=== PATIENT | male | born 1955 | race Two or more races ===

== ENCOUNTER 2022-01-08 10:32 | Emergency (ER) | payer OTHER ==
--- OUTSIDE RECORDS SUMMARY | 2022-01-08 10:34 | XMS REPORT | Continuity of Care Document ---
:1955 Author Organization [facility] t Address [address] [place] [address] [address]. [address] [place] [address] Care Team Providers Name Role Phone Bhavani Bernardo MD Attending Clinician Monty SANDOVAL Attending Clinician Unavailable Monty BERNARDO Attending Clinician Unavailable RADIOLOGY Attending Clinician Unavailable Radiology Attending Clinician Unavailable Payers Payer Name Policy Type Policy Number Effective Date Expiration Date S ource Problems This patient has no known problems. Allergies, Adverse Reactions, Alerts Allergy Allergy Status Severity Reaction(s) Onset Inactive Treating Comm ents Source Name Type Date Date Clinician NO KNOWN Drug Active Univers ALLERGIE Class ity of [facility] Social History Social Habit Start Date Stop Date Quantity Comments Source Exposure to Not sure [facility] SARS-CoV-2 (event) Medica l [place] Sex Assigned At [birth year] [facility] 00:00:00 00:00:00 [facility] Smoking Status Start Date Stop Date Source Unknown if ever smoked [facility] Medications Ordered Filled Start Stop Current Ordering Indication Dosage Frequency Signature Comments Components Source Medication Medication Date Date Medication? Clinician (SIG) Name Name iohexol 2020- No [id number] 100mL 100 mL, Univers (OMNIPAQUE 01-08 Intravenou it y of 350 13:10: 13:23 s, ONCE, 1 [place] BULK-100 00 :00 dose, Mon Medica l mL) 01/08/21 at Branch injection 0830, 100 mL Routine No known No Univers medications [facility] No known No Univers medications [facility] Immunizations Ordered Filled Immunization Date Status Comments Sourc e Immunization Name Name SARS-COV-2 COVID-19 2021-01-08 Completed Unive rsity of [facility]ER[place] VACCINE 00:00:[address] [facility] SARS-COV-2 COVID-19 2020-12-11 Completed Unive rsity [facility] VACCINE [facility] SARS-COV-2 COVID-19 2020-12-11 Completed Unive rsity of MODERNA VACCINE 00:00:[address] [facility] SARS-COV-2 COVID-19 2020-12-11 Completed Unive rsity of MODERNA VACCINE 00:00:[address] [facility] Procedures Procedure Date / Time Performed Performing Clinician Sourc e CT THORAX W WO 2021-01-08 13:17:00 Bhavani Bernardo [facility] [place] CONTRAST [facility] HB CREATININE BLOOD 2021-01-08 12:06:00 Bhavani Bernardo [facility] XR CHEST 2 VW 2020-12-27 16:24:45 Requisition, Paper [facility] NOTICE OF PRIVACY 2020-12-27 16:02:49 Doctor Unassigned, No [facility] CONSENT/REFUSAL FOR 2020-12-27 16:02:26 Doctor Unassigned, No Un [facility] DIAGNOSIS AND [facility] TREATMENT ASSIGNMENT OF BENEFITS 2020-12-27 16:02:01 Doctor Unassigned, No [facility] Encounters Start End Encounter Admission Attending Care Care Encounter Source Date/Time Date/Time Type Type Clinicians Facility Department ID 2021-01-08 2021-01-08 [facility] [id number] Univers 07:48:10 23:59:00 Encounter Bhavani Benitez [id number] [facility] [id number] [facility] [id number] [place] [address] Branch 2021-01-08 2021-01-08 Outpatient Aleks SANDOVAL [facility] [id number] Univers 14:20:00 14:20:00 RENETTA milo [facility] 2021-01-08 2021-01-08 Outpatient Aleks BERNARDO [facility] [id number] Univers 08:00:00 08:00:00 BHAVANI [id number] [facility] 2021-01-02 2021-01-02 KVNG [facility] [id number] Univers 00:00:00 00:00:00 Management Bhavani TRIVEDI [id number] ity of [facility] [id number] [facility] [id number] [facility] 803 [place] 2020-12-30 2020-12-30 Outpatient R RADIOLOGY [facility] [id number] Univers 00:00:00 00:00:00 [id number] [facility] 2020-12-27 2020-12-[address] [facility] [id number] Univers 11:00:00 23:59:00 Encounter Eli [id number] ity of [place] [id number] [place] [facility] [id number] [place] [id number] [place] 2020-12-27 2020-12-27 Outpatient R RADIOLOGY [facility] [id number] Univers 00:00:00 00:00:00 [facility] 2020-12-27 2020-12-27 Outpatient R RADIOLOGY [facility] [id number] Univers 00:00:00 00:00:00 [facility] Results Test Description Test Time Test Comments Results Result Comments Source POCT CREATININE 2021-01-08 19:10:00 Test Item Value Reference Range Interpretation Comme nts POCT Creatinine (test code = 6612204290) 0.9 mg/dL 0.6-1.3 Lab Interpretation (test code = 72397-9) [facility] [id number] 14:09:49 No chest wall mass identified. CT SCAN OF THE CHEST WITH AND WITHOUT CONTRAST TECHNIQUE: Multidetector helical CT scan of the chest was performed withand without intravenous iodinated contrast. Coronal sagittal reformats werealso generated and submitted for review. CLINICAL INFORMATION: Left chest wall mass. DOSE INFORMATION: 369 COMPARISON: 84 FINDINGS:Lungs: ?Clear lungs except for subsegmental millimeter calcified granulomain the anterior right upper lobe (19:73). Airways: Patent central airways. Pleura: ?No pleural effusion or pneumothorax. Mediastinum: No mediastinal or hilar lymphadenopathy. Cardiovascular: ?Normal caliber of thoracic aorta and proximal greatvessels. No pericardial effusion. No discernible coronary arterycalcifications. Lower neck and chest wall: No chest wall mass. Mild cutaneouscalcifications are seen within the bilateral upper chest (particularly atthe midline and on the left). Upper abdomen: Cholelithiasis. No pericholecystic free fluid orinflammatory change. Bones: No acute or suspicious osseous abnormality. Mild multileveldegenerative changes of thoracic spine. [facility], Radiant Results Inft User - 01/08/2021 9:10 AM CDTCT SCAN OF THE CHEST WITH AND WITHOUT CONTRASTTECHNIQUE: Multidetector helical CT scan of the chest was performed withand without intravenous iodinated contrast. Coronal sagittal reformats werealso generated and submitted for review.CLINICAL INFORMATION: Left chest wall mass.DOSE INFORMATION: 369COMPARISON: 84FINDINGS:Lungs: Clear lungs except for subsegmental millimeter calcified granulomain the anterior right upper lobe (19:73).Airways: Patent central airways.Pleura: No pleural effusion or pneumothorax.Mediastinum: No mediastinal or hilar lymphadenopathy.Cardiovascular: Normal caliber of thoracic aorta and proximal greatvessels. No pericardial effusion. No discernible coronary arterycalcifications.Lower neck and chest wall: No chest wall mass. Mild cutaneouscalcifications are seen within the bilateral upper chest (particularly atthe midline and on the left).Upper abdomen: Cholelithiasis. No pericholecystic free fluid orinflammatory change. Bones: No acute or suspicious osseous abnormality. Mild multileveldegenerative changes of thoracic spine.IMPRESSIONNo chest wall mass identified.[facility] XR CHEST 2 [id number] 16:29:14HISTORY: ?Chest wall mass. TECHNIQUE: PA and lateral views of the chest are obtained. FINDINGS: No acute pneumonia detected. No pneumothorax or pleural effusionor pulmonary congestion. Cardiothoracic ratio of approximately 13.6/33.6 cmis consistent with normal cardiac size. Mild pectus excavatum deformity ofthe lower sternum noted. Mild mid thoracic degenerative spondylosis isnoted without any compression fracture deformity in the thoracic vertebralbodies. Prominent Schmorl's node noted in the lowerplate of T10 and T11,likely secondary to remote axial loading trauma. CONCLUSIONS: No signs of acutecardiopulmonary disease. Chest wall mass isnot appreciated in the chest radiographs. If furtherevaluation/clarification is desired, CT scan of the chest may be obtained.[facility], Radiant Results Inft User - 12/27/2020 11:30 AM CDTHISTORY: Chest wall mass.TECHNIQUE: PA and lateral views of the chest are ob tained.FINDINGS: No acute pneumonia detected. No pneumothorax or pleural effusionor pulmonary congestion. Cardiothoracic ratio of approximately 13.6/33.6 cmis consistent with normal cardiac size. Mild pectus excavatum deformity ofthe lower sternum noted. Mild mid thoracic degenerative spondylosis isnoted without any compression fracture deformity in the thoracic vertebralbodies. Prominent Schmorl's node noted in the lower plate of T10 and T11,likely secondary to remote axial loading trauma.CONCLUSIONS: No signs of acute cardiopulmonary disease. Chest wall mass isnot appreciated in the chest radiographs. If furtherevaluation/clarification is desired, CT scan of the chest may be obtained.[facility]
[2022-01-08 11:00] LABS: Absolute Lymphocytes (CBC) 0.7 K/uL (0.7-4.9); Hematocrit 38.5 % (39.6-49.0); Lymphocytes % 10.7 % (15.3-44.8); MPV 8.6 fL (7.6-11.3); RBC Red Blood Cell Count 4.31 M/uL (4.33-5.43)
--- NOTE | 2022-01-08 11:05 | RAD REPORT ---
EXAM DESCRIPTION: RAD - Chest Single View - 01/08/2022 10:59 am CLINICAL HISTORY: syncope COMPARISON: CHEST PA AND LAT 2 VIEW dated 12/14/2012; CHEST PA AND LAT 2 VIEW dated 08/26/2000 FINDINGS: Lines: None. Lungs: No evidence of edema or pneumonia. Pleural: No significant pleural effusions or pneumothorax. Cardiac: The heart size is within normal limits. Bones: No acute fractures. Other: IMPRESSION: No acute cardiopulmonary disease.
--- NOTE | 2022-01-08 11:08 | RAD REPORT ---
EXAM DESCRIPTION: CT - Head Brain Wo Cont - 01/08/2022 10:57 am CLINICAL HISTORY: SYNCOPE COMPARISON: SINUS W O CONTRAST dated 06/12/2015; CT HEAD BRAIN WWO CONTRAST dated 12/28/2008 TECHNIQUE: All CT scans are performed using dose optimization technique as appropriate and may inclu de automated exposure control or mA/KV adjustment according to patient size. FINDINGS: No intracranial hemorrhage, hydrocephalus or extra-axial fluid collection.No areas of brai n edema or evidence of midline shift. Left maxillary sinus mucous retention cyst. The calvarium is intact. IMPRESSION: No acute intracranial abnormality.
[2022-01-08 11:20] LABS: Potassium 3.9 mmol/L (3.5-5.1)
[2022-01-08 11:52] LABS: SARS-COV-2 RT PCR NEGATIVE (NEGATIVE)
[2022-01-08] MEDS ORDERED: NA CHLORIDE 0.9% 1,000 ML ONE (12:32)
--- NOTE | 2022-01-08 14:20 | ER ---
Nurse's Notes [facility] Name: Buddy Mccarthy Age: 66 yrs Sex: Male : 1955 Arrival Date: 01/08/2022 Time: 10:34 Bed 15 Private MD: Diagnosis: syncope;Orthostatic hypotension;Influenza a Presentation: 01/08 10:27 Chief complaint: EMS states: called after patient has a syncopal event while jg9 walking to the bathroom, patient hit his head and had a +Loc for about 1 minute, she helped the patient up at which time his eyes rolled in the back of his head and he had a second syncopal event. Patient reports that he was feeling bad all day yesterday, cough, sneezing, sore throat and low grade temp. Coronavirus screen: Vaccine status:. Ebola Screen: Patient negative for fever greater than or equal to 101.5 degrees Fahrenheit, and additional compatible Ebola Virus Disease symptoms Patient denies exposure to infectious person. Patient denies travel to an Ebola-affected area in the 21 days before illness onset. 10:27 Method Of Arrival: EMS: [facility] jg9 10:30 Initial Sepsis Screen: Does the patient meet any 2 criteria? No. Patient's initial jg9 sepsis screen is negative. Does the patient have a suspected source of infection? No. Patient's initial sepsis screen is negative. Risk Assessment: Do you want to hurt yourself or someone else? Patient reports no desire to harm self or others. Onset of symptoms was January 07, 2022. 10:30 Acuity: MATILDA 3 jg9 Triage Assessment: 10:27 General: Appears in no apparent distress. Behavior is calm, cooperative. Pain: Denies jg9 pain. Neuro: Reports weakness since yesterday. Historical: - Allergies: 10:38 No Known Allergies; jg9 - Immunization history:: Adult Immunizations up to date. - Social history:: Smoking status: Patient denies any tobacco usage or history of. Screenin:04 Abuse screen: Denies threats or abuse. Denies injuries from another. Nutritional jg9 screening: No deficits noted. Tuberculosis screening: No symptoms or risk factors identified. Fall Risk Fall in past 12 months (25 points). Assessment: 11:04 Reassessment: Patient appears in no apparent distress at this time. No changes from jg9 previously documented assessment. Neuro: Level of Consciousness is awake, alert, obeys commands, Oriented to person, place, time, situation. Cardiovascular: Rhythm is sinus rhythm. Vital Signs: 10:30 BP 104 / 64; Pulse 69; Resp 20 S; Temp 98.4(O); Pulse Ox 99% on R/A; Weight 88 kg (R); jg9 Height 6 ft. 1 in. (185.42 cm) (R); Pain 0/10; 11:00 BP 96 / 49; Pulse 72; Resp 15; Pulse Ox 100% on R/A; jg9 11:45 BP 96 / 47; Pulse 68; Resp 15 S; Pulse Ox 99% on R/A; jg9 12:30 BP 106 / 76 Supine; Pulse 79; Resp 18 S; Pulse Ox 100% on R/A; jg9 12:35 BP 107 / 82 Sitting; Pulse 85; Resp 20 S; Pulse Ox 100% on R/A; jg9 12:40 BP 101 / 64 Standing; Pulse 100; Resp 20 S; Pulse Ox 100% ; jg9 13:30 BP 100 / 64; Pulse 67; Resp 15 S; Pulse Ox 100% on R/A; jg9 14:15 BP 109 / 54; Pulse 74; Resp 16 S; Pulse Ox 99% on R/A; jg9 10:30 Body Mass Index 25.59 (88.00 kg, 185.42 cm) jg9 ED Course: 10:34 Patient arrived in ED. jg9 10:35 Altagracia Barth, FRANCI is Primary Nurse. jg9 10:35 Roderick Morillo DO is Attending Physician. ms3 10:38 Triage completed. jg9 10:45 Arm band placed on right wrist. jg9 10:58 COVID-19/FLU A+B (Document "Date of Onset" if Symptomatic) Sent. ww 10:58 Strep Sent. ww 10:59 CT Head Brain wo Cont In Process Unspecified. EDMS 11:01 XRAY Chest (1 view) In Process Unspecified. EDMS 11:06 Patient has correct armband on for positive identification. Bed in low position. Call jg9 light in reach. Side rails up X 1. 13:35 No apparent distress. Resting quietly. Awaiting lab results, Awaiting radiology jg9 results. Awaiting disposition. Pt visited by . 14:19 Yonas Yepez MD is Referral Physician. ms3 14:32 No provider procedures requiring assistance completed. jg9 14:32 IV discontinued. jg9 Administered Medications: 12:42 Drug: NS 0.9% 1000 ml Route: IV; Rate: 1 bolus; Site: right antecubital; jg9 14:17 Follow up: IV Status: Completed infusion; IV Intake: 1000ml jg9 Point of Care Testin:05 n/a-seen in regular labs jg9 Ranges: Intake: 14:17 IV: 1000ml; Total: 1000ml. jg9 Outcome: 14:20 Discharge ordered by . ms3 14:32 Discharged to home via wheelchair. jg9 14:32 Condition: stable 14:32 Discharge instructions given to patient, Instructed on discharge instructions, follow up and referral plans. Demonstrated understanding of instructions, follow-up care. 14:33 Patient left the ED. jg9 Signatures: Dispatcher [employer] EDMS Roderick Morillo DO DO ms3 Altagracia Barth, RN RN jg9 Joann Rouse, RN RN ww
--- NOTE | 2022-01-08 14:21 | EDPHYS ---
Physician Documentation [facility] Name: Buddy Mccarthy Age: 66 yrs Sex: Male : 1955 Arrival Date: 01/08/2022 Time: 10:34 Bed 15 Private MD: ED Physician Roderick Morillo HPI: 01/08 10:44 This 66 yrs old Male presents to ER via EMS with complaints of Syncope, General ms3 Weakness. 10:44 The patient has experienced syncope, lost consciousness. Onset: The symptoms/episode ms3 began/occurred just prior to arrival. Duration: The patient has had multiple episodes, that last 1 minute(s). Context: Syncopal episode while walking to the bathroom, then again 2 additional times. Associated injury: The patient did not suffer any apparent associated injury. Associated signs and symptoms: Pertinent negatives: abdominal pain, chest pain, diarrhea, dizziness, headache, shortness of breath. 66 yo male with PMH of syncope presents for 3 syncopal episodes that began while patient was walking ot the bathroom. Patient denies pain. Patient denies CP, SOB, N/V/D. Patient endorses cough, sneezing and sore throat. Patient states his PMD is Dr Yepez. Historical: - Allergies: 10:38 No Known Allergies; jg9 - Immunization history:: Adult Immunizations up to date. - Social history:: Smoking status: Patient denies any tobacco usage or history of. ROS: 10:44 Constitutional: Negative for fever, and chills. Neck: Negative for injury, pain, and ms3 swelling, Cardiovascular: Negative for chest pain, and palpitations. Respiratory: Negative for shortness of breath, cough, wheezing, and pleuritic chest pain, Abdomen/GI: Negative for abdominal pain, nausea, vomiting, diarrhea, and constipation, Back: Negative for injury and pain, MS/Extremity: Negative for injury and deformity, Skin: Negative for injury, rash, and discoloration. 10:44 Neuro: Positive for syncope. 10:44 All other systems are negative. Exam: 10:32 ECG was reviewed by the Attending Physician. ms3 10:44 Constitutional: This is a well developed, well nourished patient who is awake, alert, ms3 and in no acute distress. Head/Face: Normocephalic, atraumatic. Neck: Trachea midline, no cervical lymphadenopathy. Supple, full range of motion without nuchal rigidity, or vertebral point tenderness. No Meningismus. Chest/axilla: Normal chest wall appearance and motion. Nontender with no deformity. Cardiovascular: Regular rate and rhythm with a normal S1 and S2. No gallops, murmurs, or rubs. Normal PMI, no JVD. No pulse deficits. Respiratory: Lungs have equal breath sounds bilaterally, clear to auscultation and percussion. No rales, rhonchi or wheezes noted. No increased work of breathing, no retractions or nasal flaring. Abdomen/GI: Soft, non-tender, with normal bowel sounds. No distension or tympany. No guarding or rebound. No evidence of tenderness throughout. Skin: Warm, dry with normal turgor. Normal color with no rashes, no lesions, and no evidence of cellulitis. Psych: Awake, alert, with orientation to person, place and time. Behavior, mood, and affect are within normal limits. Vital Signs: 10:30 BP 104 / 64; Pulse 69; Resp 20 S; Temp 98.4(O); Pulse Ox 99% on R/A; Weight 88 kg (R); jg9 Height 6 ft. 1 in. (185.42 cm) (R); Pain 0/10; 11:00 BP 96 / 49; Pulse 72; Resp 15; Pulse Ox 100% on R/A; jg9 11:45 BP 96 / 47; Pulse 68; Resp 15 S; Pulse Ox 99% on R/A; jg9 12:30 BP 106 / 76 Supine; Pulse 79; Resp 18 S; Pulse Ox 100% on R/A; jg9 12:35 BP 107 / 82 Sitting; Pulse 85; Resp 20 S; Pulse Ox 100% on R/A; jg9 12:40 BP 101 / 64 Standing; Pulse 100; Resp 20 S; Pulse Ox 100% ; jg9 13:30 BP 100 / 64; Pulse 67; Resp 15 S; Pulse Ox 100% on R/A; jg9 14:15 BP 109 / 54; Pulse 74; Resp 16 S; Pulse Ox 99% on R/A; jg9 10:30 Body Mass Index 25.59 (88.00 kg, 185.42 cm) jg9 MDM: 10:43 Patient medically screened. ms3 10:44 Differential Diagnosis: vasovagal episode, Orthostatic hypotension vs COVID vs Flu. ms3 14:20 Data reviewed: vital signs, nurses notes, lab test result(s), EKG, radiologic studies. ms3 Counseling: I had a detailed discussion with the patient and/or guardian regarding: the historical points, exam findings, and any diagnostic results supporting the discharge/admit diagnosis, lab results, radiology results, the need for outpatient follow up, to return to the emergency department if symptoms worsen or persist or if there are any questions or concerns that arise at home. ED course: Discussed case with Dr Yepez to ensure close follow up of patient as patient declines observation in the hospital. Discussed need for patient to follow up with Dr Yepez in 1-2 days. Patient understands/ agrees with plan. Return precautions discussed to include worsening symptom, or any other concern. Patient is a/o x4, nad, non-toxic, ambulatory in ED, speaking full sentences.. 01/08 10:44 Order name: Basic Metabolic Panel; Complete Time: 12:25 3 01/08 10:44 Order name: CBC with Diff; Complete Time: 11:10 01/08 10:44 Order name: Magnesium; Complete Time: 12:25 3 01/08 10:44 Order name: Troponin HS; Complete Time: 12:25 01/08 10:48 Order name: COVID-19/FLU A+B (Document "Date of Onset" if Symptomatic); Complete Time: kj1 12:25 01/08 10:48 Order name: Strep; Complete Time: 12:25 kj1 01/08 10:44 Order name: XRAY Chest (1 view); Complete Time: 11:10 3 01/08 10:44 Order name: EKG; Complete Time: 10:45 01/08 10:44 Order name: Cardiac monitoring; Complete Time: 10:47 01/08 10:44 Order name: EKG - Nurse/Tech; Complete Time: 10:47 01/08 10:44 Order name: IV Saline Lock; Complete Time: 10:47 ms3 01/08 10:44 Order name: CT Head Brain wo Cont; Complete Time: 11:10 ms01/08 11:38 Order name: Throat Culture EDIA 01/08 10:44 Order name: Labs collected and sent; Complete Time: 10:47 ms3 EC:32 Rate is 69 beats/min. Rhythm is regular. QRS [place] is Normal. AL interval is normal. ms3 Clinical impression: Normal ECG. Interpreted by me. Administered Medications: 12:42 Drug: NS 0.9% 1000 ml Route: IV; Rate: 1 bolus; Site: right antecubital; jg9 14:17 Follow up: IV Status: Completed infusion; IV Intake: 1000ml jg9 Point of Care Testin:05 n/a-seen in regular labs jg9 Ranges: Critical Glucose Levels:Adult <50 mg/dl or >400 mg/dl <40 mg/dl or >180 mg/dl Disposition Summary: 01/08/22 14:20 Discharge Ordered Location: Home ms3 Condition: Stable ms3 Diagnosis - syncope ms3 - Orthostatic hypotension ms3 - Influenza a ms3 Followup: ms3 - With: Yonas Yepez MD - When: 1 - 2 days - Reason: Re-evaluation by your physician Discharge Instructions: - Discharge Summary Sheet ms3 - Influenza, Adult ms3 - Syncope ms3 Forms: - Medication Reconciliation Form ms3 - Thank You Letter ms3 - Antibiotic Education ms3 - Prescription Opioid Use ms3 Signatures: Dispatcher [employer] EDIA Roderick Morillo DO DO ms3 Altagracia Barth, RN RN jg9
[2022-01-08 14:44] VITALS: BP 109/54; O2SAT 99
--- NOTE | 2022-01-09 07:55 | EKG ---
Test Date: 2022-01-08 Test Time: 10:32:29 Welder Explosion: TONE MEASUREMENT RESULTS: Intervals: Rate: 69 TN: 122 QRSD: 92 QT: 404 QTc: 432 [place]: P: 62 TN: 122 QRS: 28 T: 66 INTERPRETIVE STATEMENTS: Normal sinus rhythm Normal ECG No previous ECG available for comparison Electronically Signed On 01-09-22 07:52:41 CDT by César Stockton
== END 2022-01-08 14:33 | disposition home or self-care (01) ==
LOC: ER 10:32
DX: I95.1 Orthostatic hypotension (principal); J11.1 Influenza due to unidentified influenza virus with other respiratory manifestations; Z20.822 Contact with and (suspected) exposure to COVID-19
CPT/HCPCS: 96361; 93005; 87070; 85025; 80048; 36415; 83735; 87081; 84484; 0240U; 70450; 71045; 96360; 99284; J7030